=== PATIENT | male | born 1965 | race Caucasian/White ===

== ENCOUNTER 2017-01-28 16:06 | Emergency (ER) | payer MEDICARE ==
[~2017-01-28 16:06] MED LIST: ADVAIR INH; ANDROGEL1 % TOP; CELEBREX2 PO; CITRACAL PO; CLARIT10 PO; CYMBALTA60 PO; FISH OIL1200 MG PO; MELATONIN10 M2 PO; MIRALAX POWDER1 PKT PO; MULTI-VIT HP PO; ROXICODONE30 MG PO; STOOL SOFTEN240 MG PO; VITAMIN D31000 UNIT PO; XANAX1 MG PO; XARELTO20 MG PO; [UNRECOGNIZED DRUG - OTHER]
[2017-01-28 16:47] LABS: BASOPHILS 0.2 %; BASOPHILS ABSOLUTE 0.01 10/3/uL (0.0-0.16); EOSINOPHILS 1.5 %; EOSINOPHILS ABSOLUTE 0.07 10/3/uL (0.0-0.53); HEMATOCRIT 37.8 % (40.0-51.0); HEMOGLOBIN 13.1 g/dL (13.6-17.8); IMMATURE GRANULOCYTES 0.2 %; IMMATURE GRANULOCYTES ABSOLUTE 0.01 10/3/uL (0.0-0.11); LYMPHOCYTES 44.5 %; LYMPHOCYTES ABSOLUTE 2.05 10/3/uL (0.67-4.30); MANUAL DIFF NO %; MEAN CORPUS HGB CONC 34.7 g/dL (32.0-36.0); MEAN CORPUSCULAR HEMOGLOB 31.1 pg (26.0-34.0); MEAN CORPUSCULAR VOLUME 89.8 fL (80-100); MONOCYTES 6.3 %; MONOCYTES ABSOLUTE 0.29 10/3/uL (0.21-1.20); NEUTROPHILS 47.3 %; NEUTROPHILS ABSOLUTE 2.18 10/3/uL (2.02-8.40); PLATELET COUNT 194 10/3/uL (150-400); RED CELL COUNT 4.21 10/6/uL (4.7-6.1); WHITE BLOOD CELLS 4.6 10/3/uL (4.5-10.5)
[2017-01-28 16:51] LABS: ASCORBIC ACID (UR NOT ORDER) NEG (NEG); BILIRUBIN, URINE NEGATIVE (NEG); ER URINALYSIS TAT 0 Hrs 11 Mins; KETONE, URINE NEGATIVE (NEG); LEUKOCYTE ESTERASE(NOT OR NEG (NEG); NITRITE (URINE) NEG (NEG); WBC (NOT ORDERED) (RFLEX) < 1 (0-5)
[2017-01-28 16:56] LABS: INTERNATIONAL NORMAL RATI 1.2 UNITS (-); PARTIAL THROMBO TIME 31.6 SEC (22.5-37.2); PROTIME (NOT ORD) 15.2 SEC (12.0-14.5)
[2017-01-28 17:03] LABS: ALBUMIN 3.8 G/DL (3.5-5.0); ALKALINE PHOSPHATASE 69 U/L (45-117); CALCIUM, SERUM 8.8 MG/DL (8.5-10.4); CHEST PAIN PROFILE TAT 0 Hrs 22 Mins; CHLORIDE, SERUM 105 MMOL/L (96-112); CO2 (CARBON DIOXIDE) 30 MMOL/L (24-34); CREATININE 1.23 MG/DL (0.70-1.30); GFR AFRICAN AMERICAN 78 ML/MIN (>=60); GFR NON AFRICAN AMERICAN 67 ML/MIN (>=60); GLUCOSE, SERUM 112 MG/DL (60-99); POTASSIUM, SERUM 3.5 MMOL/L (3.5-5.3); SGOT(AST) 27 U/L (5-40); SGPT(ALT) 34 U/L (5-65); SODIUM, SERUM 145 MMOL/L (135-148); TOTAL BILIRUBIN 0.7 MG/DL (0-1.2); TOTAL PROTEIN 6.9 G/DL (6.0-8.5); TROPONIN I <0.02 NG/ML (<0.05)
[2017-01-28 17:05] LABS: BUN (BLOOD UREA NITROGEN) 6 MG/DL (6-23); DIRECT BILIRUBIN < 0.1 MG/DL (0.0-0.4); INDIRECT BILIRUBIN(NOT ORDER) 0.6 MG/DL (0.1-0.9)
== END 2017-01-28 17:59 | disposition home or self-care (01) ==
LOC: ER 16:06
PROVIDERS: Emergency Medicine
DX: S29.012A Strain of muscle and tendon of back wall of thorax, initial encounter (principal); S39.012A Strain of muscle, fascia and tendon of lower back, initial encounter; K80.20 Calculus of gallbladder without cholecystitis without obstruction; R10.9 Unspecified abdominal pain; R51 Headache; Z88.2 Allergy status to sulfonamides; Z88.8 Allergy status to other drugs, medicaments and biological substances; Z79.899 Other long term (current) drug therapy
CPT/HCPCS: 72128; 72131; 74176; 80048; 80076; 81001; 83605; 83690; 83735; 84484; 85025; 85610; 85730; 93005; 99284